=== PATIENT | male | born 1945 | race Caucasian/White ===

== ENCOUNTER 2018-03-04 10:50 | Day surgery (SDC) | payer OTHER ==
[~2018-03-04 10:50] MED LIST: CELEXA20 MG; CIPRO500 MG PO; FLAGYL500MG PO; IMODIUM A-D2 MG; INTESTINEX1 CA1 PO; NUPERCAINAL RC; OXYC1TAB9 PO; PROTONIX40 MG PO
== END 2018-03-04 15:49 | disposition home or self-care (01) ==
LOC: AMB-ENDOS 10:50
DX: K64.8 Other hemorrhoids (principal); K62.89 Other specified diseases of anus and rectum